=== PATIENT | female | born 1965 | race Asian ===

== ENCOUNTER 2016-09-10 14:17 | Emergency (ER) | payer BC ==
[~2016-09-10] VITALS: Ht 149.9 cm; Wt 44.5 kg
[2016-09-10 14:17] VITALS: BP_SYST 110
--- NOTE | 2016-09-10 14:20 | NUR ---
PT TRIAGED.PT WITH EMS AWAITNG OPEN GURNEY.VSS
--- NOTE | 2016-09-10 15:30 | NUR ---
ASSUMED CARE.PT C/O VOMITING PRIOR TO ARRIVAL.PT GIVEN ZOFRAN BY EMS, PT REPORTS NAUSEA RESOLVED.PT DENIES PREVIOUS MED HX.
--- NOTE | 2016-09-10 17:00 | NUR ---
ER at bedside examining patient.
[2016-09-10] MEDS ORDERED: NACL 0.9% 1,000 ML IV ONE ×2 (17:10→17:15)
[2016-09-10] MEDS ORDERED: METOCLOPRAMIDE HCL 10 MG/2 ML VIAL IVP ONE (17:15)
[2016-09-10] MEDS ORDERED: LORazepam 2 MG/ML VIAL IVP ONE (17:15)
[2016-09-10] MEDS ORDERED: DIPHENHYDRAMINE INJ 50 MG/ML VIAL IVP ONE (17:15)
--- NOTE | 2016-09-10 17:15 | NUR ---
UPON MD EVALUATION.PT REPORTS S/S VERTIGO.
--- NOTE | 2016-09-10 17:30 | NUR ---
PT MEDCIATED PER MD ORDERS.
[2016-09-10 17:36] LABS: BASOPHILS % (AUTO) 0.2 % (0.0-2.0); HEMATOCRIT 38.9 % (36-48); HEMOGLOBIN 13.7 g/dL (12.0-16.0); LYMPHOCYTES # (AUTO) 0.7 K/uL (1.0-5.5); LYMPHOCYTES % (AUTO) 6.5 % (20.5-51.5); MEAN CORPUSCULAR HEMOGLOBIN 33 pg (27-31); MEAN CORPUSCULAR HGB CONC 35 % (32-36); MEAN CORPUSCULAR VOLUME 93 fL (79.0-98.0); MONOCYTES # (AUTO) 0.2 K/uL (0.0-1.0); MONOCYTES % (AUTO) 1.8 % (1.7-9.3); NEUTROPHILS # (AUTO) 10.1 K/uL (1.8-7.7); NEUTROPHILS % (AUTO) 91.5 % (40.0-70.0); PLATELET COUNT (AUTO) 251 K/uL (130-430); RED BLOOD CELL COUNT(AUTO) 4.19 MIL/uL (4.2-6.2); RED CELL DISTRIBUTION WIDTH 11.8 % (9.0-15.0)
[2016-09-10 17:43] LABS: CALCIUM 8.6 mg/dL (8.4-11.0); CREATININE 0.66 mg/dL (0.55-1.30); POTASSIUM 3.9 mmol/L (3.5-5.1)
[2016-09-10] MEDS ORDERED: LORazepam 2 MG/ML VIAL (FOR ER USE) IVP ONE (17:45)
--- NOTE | 2016-09-10 18:30 | NUR ---
PT SLEEPING EASILY AROUSEABLE.PT REPORTS S/S RESOLVING.
[2016-09-10 19:30] VITALS: BP_SYST 105
--- NOTE | 2016-09-10 19:30 | NUR ---
Patient given written and verbal discharge instructions and verbalizes understanding. ER MD discussed with patient the results and treatment provided. Given copies of tests performed in ER. Patient in stable condition. ID arm band removed. IV catheter removed intact and dressing applied, no active bleeding. Rx of ANTIVERT given. Patient educated on pain management and to follow up with PMD. Pain Scale 0 Opportunity for questions provided and answered.
== END 2016-09-10 19:30 | disposition home or self-care (01) ==
LOC: SED 14:17
DX: R42 Dizziness and giddiness (principal); R07.89 Other chest pain; R11.10 Vomiting, unspecified
CPT/HCPCS: 36415; 70450; 71010; 80048; 84484; 85025; 93005; 96361; 96374; 96375; 99285; J1200; J2765; J7030; J2060